=== PATIENT | male | born 1940 ===

== ENCOUNTER 2023-08-30 04:00 | Day surgery (SDC) | payer OTHER ==
[2023-08-24 13:57] VITALS: BMI 21.6
[2023-08-30] MEDS ORDERED: BUPIVACAINE HCL/PF 0.25% (2.5MG/ML) 10 ML VIAL ONE (10:03)
[2023-08-30] MEDS ORDERED: HEPARIN NA (PORCINE) 5,000 UNITS/ML 1ML VIAL ONE (10:03)
[2023-08-30] MEDS ORDERED: cefOXitin SODIUM 2 GM VIAL (RESTRICTED TO ID) IVPB ONE (10:04)
[2023-08-30] MEDS ORDERED: SUGAMMADEX SODIUM 200 MG/2 ML VIAL ONE ×2 (10:07)
[2023-08-30] MEDS ORDERED: PROPOFOL 40 ML ONE (10:19)
[2023-08-30] MEDS ORDERED: LIDOCAINE HCL/PF 2% SDV 5ML VIAL ONE (10:20)
[2023-08-30] MEDS ORDERED: DEXAMETHASONE SOD PHOSPHATE 4 MG/1 ML VIAL ONE (10:20)
[2023-08-30] MEDS ORDERED: ONDANSETRON 4 MG/2 ML VIAL ONE (10:20)
[2023-08-30] MEDS ORDERED: ROCURONIUM BROMIDE 50 MG/5 ML SYRINGE ONE (10:35)
[2023-08-30] MEDS: ceFAZolin SODIUM 1 GM VIAL IVPB ONE (11:03)
[2023-08-30] MEDS ORDERED: PROPOFOL 20 ML ONE (11:05)
[2023-08-30] MEDS: BUPIVACAINE HCL/PF 0.25% (2.5MG/ML) 10 ML VIAL IJ ONE ×2 (11:10)
[2023-08-30] MEDS ORDERED: ACETAMINOPHEN INJECTION 100 ML IVPB ONE (12:59)
[2023-08-30] MEDS ORDERED: SUCCINYLCHOLINE CHLORIDE 200 MG/10 ML SYRINGE ONE (13:02)
[2023-08-30] MEDS ORDERED: ONDANSETRON 4 MG/2 ML VIAL IVPUSH PRN (13:27)
[2023-08-30] MEDS ORDERED: LACTATED RINGERS SOLUTION 1,000 ML IV SCH (13:30)
[2023-08-30 15:56] VITALS: RESP 18
[2023-08-30 17:17] VITALS: BP 154/88; PULSE 74; TEMP 97.8
== END 2023-08-30 17:27 | disposition home or self-care (01) ==
LOC: JASU-SURG 04:00
PROVIDERS: ATTEND Surgery
PROC: 8E0W4CZ Robotic Assisted Procedure of Trunk Region, Percutaneous Endoscopic Approach (ICD-10-PCS; 2023-08-30)
PROC: 0YU54JZ Supplement Right Inguinal Region with Synthetic Substitute, Percutaneous Endoscopic Approach (ICD-10-PCS; principal; 2023-08-30 10:30)
DX: K40.90 Unilateral inguinal hernia, without obstruction or gangrene, not specified as recurrent (principal)
CPT/HCPCS: 49650; S2900; 86850; 86900; 86901; 94760; C1781; J0131; J1644